=== PATIENT | male | born 1990 | race Caucasian/White ===

== ENCOUNTER 2018-12-03 12:36 | Emergency (ER) | payer OTHER ==
--- NOTE | 2018-12-03 12:46 | ED Physician Documentation ---
General Adult - HISTORIAN Historian: patient - HPI Stated Complaint: shortness of breath, chest pain Chief Complaint: General Adult Additional Information: Patient presents to ED via EMS from custodial with complaints of chest pain and shortness of breath. Patient was found unresponsive, cyanotic and pulseless this am at 0902. CPR was started and Narcan 0.4mg x 2 was given. Patient regained consciousness, vomited and was ambulatory, however, several hours later began to have low oxygen levels (in the 80s) and was cyanotic around the lips. Patient was brought to ED for further evaluation. In route patient was given Narcan 2mg and Zofran 4mg. Patient does not know what happened. There are reports that patient was seen snorting something prior to Code. Onset: hours (3) Timing: still present, persistent since Severity: severe - ROS CONST: no problems EYES/ENT: none CVS/RESP: chest pain, shortness of breath GI/: nausea MS/SKIN/LYMPH: none NEURO/PSYCH: denies: headache - PAST HX Past History: other (Hep C) Other History: none Surgeries/Procedures: none Allergies/Adverse Reactions: Allergies Allergy/AdvReac Type Severity Reaction Status Date / Time No Known Allergies Allergy Unverified 12/03/18 12:56 Home Medications: Ambulatory Orders Medication Instructions Recorded NK 12/03/18 - SOCIAL HX Smoking History: non-smoker Alcohol Use: none Drug Use: none - FAMILY HX Family History: No - REVIEWED ASSESSMENTS Nursing Assessment Reviewed: Yes Vitals Reviewed: Yes Progress - Progress Progress: [address] Garsia, medical device sales consultant fish boning machine feeder for [facility], states we can admit here. [address] Morris, agrees with admission. 1415 Rafael Conroy states this patient is not an appropriate admission for this hospital [address] Martinez, [facility] hospitalist for admission. ED Results Lab/Radiology - Lab Results Lab Results: UA - negative UDS - negative - Radiology Radiology Impressions: Report Submission Date: Dec 03, 2018 1:23:54 PM CDT Patient Study Name: KAYLA SPRINGER Date: Dec 03, 2018 12:42:25 PM CDT Modality Type: DX Gender: M Description: CHEST 1VIEW : 89 Institution: [facility] Physician: KEVAN MCCRAY Chest 1 view Indication: POST CPR shortness of breath Findings: Frontal view of the chest shows bilateral pulmonary vascular congestion. There is cardiomegaly. Impression: Pulmonary vascular congestion with cardiomegaly Electronically signed on Dec 03, 2018 1:23:54 PM CDT by: Rafael Sewell General Adult Physical Exam - PHYSICAL EXAM GENERAL APPEARANCE: no distress EENT: ENT inspection normal NECK: supple RESPIRATORY: no resp distress, breath sounds normal CVS: reg rate & rhythm, heart sounds normal ABDOMEN: soft, normal bowel sounds BACK: normal inspection, no CVA tenderness SKIN: warm/dry, cyanosis (fingertips) EXTREMITIES: non-tender, normal range of motion, no evidence of injury NEURO: oriented X3, depressed mood/affect Discharge Clincal Impression: Acute respiratory failure with hypoxia Bilateral pneumonia Qualifiers: Pneumonia type: aspiration pneumonia Aspiration pneumonia type: due to vomit Lung location: unspecified part of lung Qualified Code(s): J69.0 - Pneumonitis due to inhalation of food and vomit Referrals: Joseph Madrid III, MD [Primary Care Provider] - 2 Days Condition: Stable Disposition: XFER [id number]-TRM HOSP Decision to Admit: NO Date of Decison to Admit: 12/03/18 Decision Time: 14:36
[2018-12-03] MEDS ORDERED: 0.9 % SODIUM CHLORIDE 1,000 ML IV ONE (12:48)
[2018-12-03] MEDS: FLUMAZENIL 0.1 MG/ML 5ML VIAL IV ONE (13:00)
[2018-12-03] MEDS: NALOXONE HCL 0.4 MG/ML AMP IVP ONE (13:00)
[2018-12-03] MEDS: FUROSEMIDE 40 MG/4 ML VIAL IVP ONE (13:08)
[2018-12-03 13:16] LABS: eGFR (Non-African) > 60
[2018-12-03 13:19] LABS: BASOPHILS % 0.8 % (0.0-1.5); NEUTROPHILS # 18.6 # k/uL (1.4-7.7)
[2018-12-03 13:20] LABS: SEGMENTED NEUTROPHILS % 76 % (39-79)
--- NOTE | 2018-12-03 13:27 | Diagnostic Imaging Report ---
PATIENT MR#: [id number] PATIENT PATIENT NAME: KAYLA SPRINGER DATE OF : 1990 REFERRING PHYSICIAN: Oma Barnes EXAM DATE: 12/03/2018 ACCESSION NUMBER: [id number] EXAM DESCRIPTION: CHEST 1VIEW Chest 1 view Indication: POST CPR shortness of breath Findings: Frontal view of the chest shows bilateral pulmonary vascular congestion. There is cardiomegaly. Impression: Pulmonary vascular congestion with cardiomegaly Read by: Dr. Rafael Sewell Transcribed by: Transcribed Date: Electronically signed by: Dr. Rafael Sewell Date signed: 12/03/2018 1:26:53 PM
[2018-12-03] MEDS: PIPERACILLIN SODIUM/TAZOBACTAM 3.375 GM in 0.9 % SODIUM CHLORIDE 100 ML IV ONE (13:47)
[2018-12-03] MEDS: methylPREDNISolone SOD SUCC 125 MG/2 ML VIAL IVP ONE (13:47)
[2018-12-03] MEDS: IPRATROPIUM/ALBUTEROL SULFATE 3 ML AMPUL.NEB NEB ONE (13:55)
[2018-12-03 15:13] VITALS: BP 112/61
[2018-12-03 15:32] LABS: APPEARANCE,URINE CLEAR (CLEAR); COLOR,URINE YELLOW (YELLOW); OCCULT BLOOD,URINE NEGATIVE (NEGATIVE); PH URINE 5.5 (5.0 - 8.0); UROBILINOGEN URINE 0.2 Eu (0.2-1.0)
[2018-12-03 15:32] LABS: CANNABINOIDS NEGATIVE ng/mL (< 50); METHYLENEDIOXYMETHAMPHETAMINE NEGATIVE ng/mL (<500)
== END 2018-12-03 15:02 | disposition short-term general hospital (02) ==
LOC: ED 12:36
DX: J69.0 Pneumonitis due to inhalation of food and vomit (principal)
CPT/HCPCS: 71045; 80053; 80377; 81002; 83880; 84484; 85025; 87040; 93005; 94640; 94760; 96361; 96374; 96375; 99284; J1940; J2310; J2543; J2930; J3490; G0481